=== PATIENT | female | born 1960 | race American Indian/Alaskan Native ===

== ENCOUNTER 2017-10-22 10:17 | Outpatient (CLI) | payer OTHER ==
--- NOTE | 2017-10-22 16:24 | Mammography Report ---
BILATERAL DIGITAL SCREENING MAMMOGRAM with CAD : 10/22/17 10:17:00 CLINICAL: Routine screening. COMPARISON:06/29/15 and 06/22/15 FINDINGS: The breasts are heterogeneously dense, which may obscure small masses.A stable oval partially circumscribed right inferior mass with mixed density and a fatty component consistent with a benign hamartoma. Right upper outer calcifications have increased slightly but have benign morphology. No new mass, architectural distortion or suspicious calcifications. IMPRESSION: No mammographic evidence of malignancy. BI-RADS CATEGORY: 2 -- Benign RECOMMENDATION: Routine mammographic screening in one year. COMMENT: Patient follow-up letters are generated by our [employer] application.
== END 2017-10-22 10:18 | disposition home or self-care (01) ==
LOC: MAMMO 10:17
PROVIDERS: ATTEND Family Medicine
DX: Z12.31 Encounter for screening mammogram for malignant neoplasm of breast (principal); I10 Essential (primary) hypertension; I25.10 Atherosclerotic heart disease of native coronary artery without angina pectoris; E78.00 Pure hypercholesterolemia, unspecified; F17.219 Nicotine dependence, cigarettes, with unspecified nicotine-induced disorders; Z90.710 Acquired absence of both cervix and uterus
CPT/HCPCS: 77067

== ENCOUNTER 2018-10-29 10:22 | Day surgery (SDC) | payer OTHER ==
[2018-10-29] MEDS ORDERED: NACL 0.9% 1000 ML 1,000 ML IV SCH (11:00)
--- NOTE | 2018-10-29 12:39 | Anesthesia Day of Surgery ---
Anesthesia Day of Surgery - Day of Surgery Patient Examined: Yes Patient H&P Reviewed: Yes Patient is NPO: Yes
--- NOTE | 2018-10-29 12:39 | Anesthesia Consultation ---
Anesthesia Consult and Med Hx Date of service: 10/29/18 - Airway Anesthetic Teeth Evaluation: Poor (multiple missing chipped teeth), Chipped ROM Head & Neck: Adequate Mental/Hyoid Distance: Adequate Mallampati Class: Class II Intubation Access Assessment: Probably Good - Pre-Operative Health Status ASA Pre-Surgery Classification: ASA2 Proposed Anesthetic Plan: MAC - Pulmonary Hx Smoking: Yes (CIGARETTES < 1PPD X 37 YRS, QUIT 2 YRS AGO) Hx Sleep Apnea: No - Cardiovascular System Hx Hypertension: Yes Hx Coronary Artery Disease: No (high cholesterol) - Central Nervous System Hx Psychiatric Problems: No - Gastrointestinal Hx Ulcer: Yes Hx Gastroesophageal Reflux Disease: Yes - Hematic Hx Anemia: Yes - Other Systems Hx Cancer: No
[2018-10-29] MEDS ORDERED: DIPRIVAN 10 MG/ML IV ONE (12:43)
--- NOTE | 2018-10-29 13:36 | Operative Report ---
Operative Report Operative Report: Operative Report: Date of procedure: 10/29/2018 Procedure: Esophagogastroduodenoscopy with multiple mucosal biopsies. Attending physician: Clyde Knapp MD Substance Abuse Counselor: Clyde Knapp MD Indication: Patient is a 58 -year-old female who presented with a history of recurrent epigastric pain, heartburn, indigestion and dysphagia. She also has early satiety. Patient has a past history of peptic ulcer disease. An upper endoscopy is done to assess patient, so that treatment may be directed based on the findings. Consent: Informed consent was obtained after advising the patient and family regarding nature of this procedure, its indications, potential benefits as well as possible complications including but not limited to bleeding perforation and adverse reaction to medication, infection as well as other cardiopulmonary complications. An informed written and verbal consent was then obtained after due opportunity was provided for questions and answers. Monitoring: Patient was monitored continuously with pulse oximetry and electrocardiographic recordings as well as blood pressure recordings. Vital signs remained stable throughout this procedure with no untoward events. Preoperative assessment: Patient was assessed immediately prior to this procedure for capacity to tolerate monitored anesthesia care and moderate sedation as well as general anesthesia. Patient's ASA classification is 3, Mallampati class is 2, Hyomental distance is 3. Instrument: Olympus video endoscope: GIF [id number] Medications: Propofol given intravenously in divided doses. For details please refer to anesthesia records. Description of procedure: Patient was placed in the left lateral decubitus position after achieving sedation, the endoscope was introduced into the esophagus under direct vision. It was then advanced beyond the esophagus into the stomach and then beyond the stomach into the duodenum and to the second portion of the duodenum. It was subsequently withdrawn with careful inspection of all mucosal surfaces with the following findings. Findings: Patient had an irregular Z line at 38 cm. There was a sliding hiatal hernia seen on entry into the stomach. The patient has Ania esophagitis of moderate severity Patient had multiple gastric antral erosions with erythema seen. No ulcers are seen . Biopsies were obtained from the antrum for histopathology. The duodenum was normal to the second portion. Impression: Irregular Z line. Ania esophagitis Sliding hiatal hernia. Multiple gastric antral erosions Plan: Treat Ania esophagitis with fluconazole for 14 days. Patient given prescription. Continue treatment with proton pump inhibitors. Follow pathology report. Direct additional treatment based on the pathology report. Patient will be observed clinically. Additional recommendations will be made follow-up.
[2018-10-29 13:42] VITALS: BP 121/74
--- NOTE | 2018-10-29 13:47 | Discharge Summary ---
Short Stay Discharge Plan Activity: advance as tolerated Weight Bearing Status: Weight Bear as Tolerated Diet: regular Additional Instructions: Post Sedation D/C Instructions When you return home you may resume your regular diet unless otherwise directed. Go directly home from the hospital and rest quietly. You may resume normal activities tomorrow. Do NOT drive, return to work, operate any machinery or make any important personal or business decisions today. Do NOT drink any alcohol or take nerve or sleeping drugs. They add to the effects of the medicine still present in your body. Follow up with: RAHEL BARRETT MD [Primary Care Provider] - 7 Days
[2018-10-29] MEDS ORDERED: XYLOCAINE MPF 2% ONE (14:00)
== END 2018-10-29 10:23 | disposition home or self-care (01) ==
LOC: GIO 10:22
PROVIDERS: ATTEND Internal Medicine Gastroenterology
DX: B37.81 Candidal esophagitis (principal); K31.89 Other diseases of stomach and duodenum; K44.9 Diaphragmatic hernia without obstruction or gangrene; I25.10 Atherosclerotic heart disease of native coronary artery without angina pectoris; E78.00 Pure hypercholesterolemia, unspecified; I10 Essential (primary) hypertension; K21.9 Gastro-esophageal reflux disease without esophagitis; M19.90 Unspecified osteoarthritis, unspecified site; Z79.899 Other long term (current) drug therapy; Z90.710 Acquired absence of both cervix and uterus; Z90.721 Acquired absence of ovaries, unilateral; Z87.891 Personal history of nicotine dependence; Z98.890 Other specified postprocedural states; Z86.2 Personal history of diseases of the blood and blood-forming organs and certain disorders involving the immune mechanism
CPT/HCPCS: 43239; 88305; 88342; J2704; J7030